=== PATIENT | male | born 1990 | race American Indian/Alaskan Native ===

== ENCOUNTER 2021-10-18 00:31 | Emergency (ER) | payer SELFPAY ==
[2021-10-18] MEDS ORDERED: ONDANSETRON 4 MG/2 ML INJ IV ONE (04:17)
[2021-10-18] MEDS ORDERED: MORPHINE 4 MG/1 ML INJ IV ONE (04:17)
[2021-10-18] MEDS ORDERED: dexAMETHasone 20 MG/5 ML VIAL IV ONE (04:17)
[2021-10-18] MEDS ORDERED: SODIUM CHLORIDE 0.9% 1000 ML 1,000 ML IV ONE (04:17)
[2021-10-18 04:35] LABS: Basophils % (Auto) 0.2 % (0.0-1.8); Eosinophils % (Auto) 0.2 % (0.0-4.3); Hematocrit 47.1 % (35.5-45.6); Hemoglobin 15.5 gm/dl (11.8-15.2); Lymphocytes # (Auto) 1.7 K/mm3 (1.2-5.4); Lymphocytes % (Auto) 10.5 % (13.4-35.0); Mean Corpuscular HGB Conc 33 % (32-34); Mean Corpuscular Volume 92 fl (84-94); Monocytes # (Auto) 1.7 K/mm3 (0.0-0.8); Platelet Count 250 K/mm3 (140-440); Red Blood Count 5.11 M/mm3 (3.65-5.03)
[2021-10-18 04:54] LABS: Alanine Aminotransferase 15 units/L (7-56); Albumin 3.6 g/dL (3.9-5); BUN/Creatinine Ratio 6; Blood Urea Nitrogen 5 mg/dL (9-20); Calcium 8.6 mg/dL (8.4-10.2); Hemolysis Index 19
--- NOTE | 2021-10-18 06:28 | Cat Scan Report ---
CT NECK 10/18/2021 HISTORY: Sore throat. Swelling.. FINDINGS: Contrast enhanced CT images of the soft tissues of the neck were obtained. Images are evalu ated in the axial, coronal, and sagittal planes. There is prominent soft tissue swelling in the left tonsillar region, resulting in mass effect upon t he upper airway. There is a central focal area of relatively decreased attenuation within the swollen tonsillar soft tissue, which measures approximately 1.6 cm, consistent with peritonsillar abscess. Soft tissue edema extends downward along the left lateral aspect of the posterior nasal and oral phar ynx, resulting in asymmetry of the vallecula and piriform sinuses, with edema extending down to the l evel of the true vocal cord. There is prominent edema and swelling of the uvula. The epiglottis is unremarkable. Pronounced cervical adenopathy is present, left greater than right, consistent with reactive adenopat hy. The largest of the cervical lymph nodes on the left measures approximately 3 cm in length. IMPRESSION: Left peritonsillar swelling and edema with evidence of 1.6 MET peritonsillar abscess. Pronounced cervical adenopathy, left greater than right. All CT scans at this location are performed using dose reduction to ALARA by means of automated expos ure control. Signer Name: Lee Alaniz MD Signed: 10/18/2021 6:24 AM Workstation Name: [id number]
--- NOTE | 2021-10-18 07:29 | Event Note ---
ED Screening Note ED Screening Note: reexam l pharyngeal swelling difficulty talking and swallowing Santino aware of need for bed ? dispo / drainage This initial assessment/diagnostic orders/clinical plan/treatment(s) is/are subject to change based on patients health status, clinical progression and re- assessment by fellow clinical providers in the ED. Further treatment and workup at subsequent clinical providers discretion. Patient/guardian urged not to elope from the ED as their condition may be serious if not clinically assessed and m anaged. Initial orders include: to main for MD eval/transfer/ dispo
--- NOTE | 2021-10-18 08:29 | Emergency Department Report ---
ED ENT HPI - General Chief complaint: Sore Throat Stated complaint: THROAT SWOLLEN SOB Time Seen by Provider: 10/18/21 06:41 Source: patient Mode of arrival: Ambulatory Limitations: No Limitations - History of Present Illness Initial comments: Patient is 31 years old male with no significant past medical history. Patient presented to the ER with a 3-day history of sore throat and difficulty swallowing. Patient stated that it is painful to swallow. He stated that he has some chills but no fever. Patient denied any nausea or vomiting. No difficulty breathing. MD complaint: sore throat, difficulty swallowing -: days(s) (3) Severity: moderate - Related Data Allergies Allergy/AdvReac Type Severity Reaction Status Date / Time No Known Allergies Allergy Verified 10/18/21 04:12 ED Dental HPI - General Chief complaint: Sore Throat Stated complaint: THROAT SWOLLEN SOB Time Seen by Provider: 10/18/21 06:41 Source: patient Mode of arrival: Ambulatory Limitations: No Limitations - Related Data Allergies Allergy/AdvReac Type Severity Reaction Status Date / Time No Known Allergies Allergy Verified 10/18/21 04:12 ED Review of Systems ROS: Stated complaint: THROAT SWOLLEN SOB Other details as noted in HPI Comment: All other systems reviewed and negative Constitutional: chills. denies: fever ENT: throat pain Cardiovascular: palpitations. denies: chest pain Gastrointestinal: denies: abdominal pain, nausea, vomiting Neurological: denies: headache, weakness, numbness, paresthesias, confusion ED Past Medical Hx - Past Medical History Previous Medical History?: No - Surgical History Past Surgical History?: No ED Physical Exam - General Limitations: No Limitations General appearance: alert, in no apparent distress - Head Head exam: Present: atraumatic, normocephalic, normal inspection - ENT ENT exam: Present: mucous membranes moist, other (Tonsillar erythema and swelling.) - Neck Neck exam: Present: normal inspection, full ROM. Absent: tenderness, meningismus - Respiratory Respiratory exam: Present: normal lung sounds bilaterally - Cardiovascular Cardiovascular Exam: Present: regular rate, normal rhythm, normal heart sounds - GI/Abdominal GI/Abdominal exam: Present: soft, normal bowel sounds. Absent: distended, tenderness, guarding, rebound, rigid, organomegaly, mass, bruit, pulsatile mass, hernia - Extremities Exam Extremities exam: Present: normal inspection, full ROM, normal capillary refill. Absent: tenderness - Back Exam Back exam: Present: normal inspection, full ROM. Absent: CVA tenderness (R), CVA tenderness (L) - Neurological Exam Neurological exam: Present: alert, oriented X3, CN II-XII intact, normal gait, reflexes normal. Absent: motor sensory deficit - Psychiatric Psychiatric exam: Present: normal mood - Skin Skin exam: Present: warm, intact, normal color ED Course Vital Signs 10/18/21 04:09 Temperature 98.5 F Pulse Rate 115 H Respiratory 17 Rate Blood Pressure 138/97 [Right] O2 Sat by Pulse 98 Oximetry ED Medical Decision Making - Lab Data Result diagrams: 10/18/21 04:21 10/18/21 04:21 - Radiology Data Radiology results: report reviewed - Medical Decision Making Patient is 31 years old male with no significant past medical history. Patient presented to the ER with a 3-day history of sore throat and difficulty swallowing. Patient stated that it is painful to swallow. He stated that he has some chills but no fever. Patient denied any nausea or vomiting. No difficulty breathing. Patient with leukocytosis of 16. Patient received clindamycin, Decadron, morphine and Zofran and normal saline. CT soft tissue neck with IV contrast showed 1.6 cm peritonsillar abscess and also showing mass-effect on the upper airway. Patient stated the symptom improved after the medication that given. I discussed the patient with Dr. Abiodun Chavez from [facility] he accepted the patient to be transferred to [facility] [place] ER for further management. On this call also present Dr. Hernandez from ER and she accepted the patient also. Critical Care Time: Yes Critical care time in (mins) excluding proc time.: 35 Critical care attestation.: If time is entered above; I have spent that time in minutes in the direct care of this critically ill patient, excluding procedure time. ED Disposition Clinical Impression: Peritonsillar abscess Disposition: 51 HOSPICE/MEDICAL FACILITY Is pt being admited?: No Condition: Stable Referrals: PRIMARY CARE, [Primary Care Provider] - 3-5 Days
[2021-10-18] MEDS ORDERED: MORPHINE 2 MG/1 ML INJ IV ONE (10:26)
[2021-10-18] MEDS ORDERED: MORPHINE 2 MG/1 ML INJ ONE (10:27)
[2021-10-18 11:41] VITALS: BP 134/89
== END 2021-10-18 12:51 | disposition hospice, inpatient (51) ==
LOC: ED 00:31
DX: J36 Peritonsillar abscess (principal)
CPT/HCPCS: 36415; 70491; 80053; 85025; 96365; 96366; 96375; 96376; 99285; J1100; J2270; J2405; J7030; J7502; Q9967; Q0162

== ENCOUNTER 2022-05-25 08:34 | Emergency (ER) | payer SELFPAY ==
--- NOTE | 2022-05-25 09:02 | XRay Report ---
CHEST 2 VIEWS INDICATION / CLINICAL INFORMATION: Chest Pain. COMPARISON: None available. FINDINGS: SUPPORT DEVICES: None. HEART / MEDIASTINUM: No significant abnormality. LUNGS / PLEURA: No significant pulmonary or pleural abnormality. No pneumothorax. ADDITIONAL FINDINGS: No significant additional findings. IMPRESSION: 1. No acute findings. Signer Name: Wyatt Lundberg MD Signed: 05/25/2022 8:57 AM Workstation Name: [id number]
[2022-05-25 09:33] LABS: Basophils % (Auto) 0.2 % (0.0-1.8); Eosinophils # (Auto) 0.1 K/mm3 (0.0-0.4); Eosinophils % (Auto) 1.2 % (0.0-4.3); Hematocrit 44.4 % (35.5-45.6); Hemoglobin 14.8 gm/dl (11.8-15.2); Lymphocytes # (Auto) 2.4 K/mm3 (1.2-5.4); Lymphocytes % (Auto) 30.4 % (13.4-35.0); Mean Corpuscular HGB Conc 33 % (32-34); Mean Corpuscular Volume 90 fl (84-94); Monocytes # (Auto) 0.6 K/mm3 (0.0-0.8); Platelet Count 245 K/mm3 (140-440); Red Blood Count 4.94 M/mm3 (3.65-5.03); Red Cell Distribution Width 14.1 % (13.2-15.2)
[2022-05-25 09:55] LABS: Alanine Aminotransferase 13 units/L (7-56); Albumin 4.7 g/dL (3.9-5); BUN/Creatinine Ratio 10; Blood Urea Nitrogen 8 mg/dL (9-20); Calcium 9.8 mg/dL (8.4-10.2); Hemolysis Index 14
--- NOTE | 2022-05-25 12:41 | Electrocardiograph Report ---
[facility] Test Date: 2022-05-25 Test Time: 08:41:31 Pat Name: QIAN BULLARD Department: Room: Gender: M Order Worker: AF : 1990 Requested By: ED DOC Order Number: [id number] Reading MD: Duy Dalal Measurements Intervals [place] Rate: 57 P: 73 DE: 141 QRS: 84 QRSD: 108 T: 78 QT: 463 QTc: 451 Interpretive Statements Sinus rhythm ST elev, probable normal early repol pattern No previous ECG available for comparison Electronically Signed On 05-25-2022 9:41:13 PDT by Duy Dalal
--- NOTE | 2022-05-25 16:42 | Emergency Department Report ---
ED General Adult HPI - General Chief complaint: Chest Pain Stated complaint: CHEST PAIN Time Seen by Provider: 05/25/22 16:15 Source: patient Mode of arrival: Ambulatory Limitations: No Limitations - History of Present Illness Initial comments: Patient presents to the emergency department the chief complaint of chest pain that has been continuous in nature for the last 2 days. Patient describes chest pain as achy dull-like sensation located on the left side of his chest. There is no radiation or shortness of breath. -: Sudden Location: chest Radiation: non-radiation Severity scale (0 -10): 5 Quality: aching Consistency: constant Improves with: none Worsens with: none Associated Symptoms: denies other symptoms Treatments Prior to Arrival: none - Related Data Allergies Allergy/AdvReac Type Severity Reaction Status Date / Time No Known Allergies Allergy Verified 05/25/22 08:40 ED Review of Systems ROS: Stated complaint: CHEST PAIN Other details as noted in HPI Comment: All other systems reviewed and negative Constitutional: denies: chills, fever Eyes: denies: eye pain, eye discharge, vision change ENT: denies: ear pain, throat pain Respiratory: denies: cough, shortness of breath, wheezing Cardiovascular: chest pain. denies: palpitations Endocrine: no symptoms reported Gastrointestinal: denies: abdominal pain, nausea, diarrhea Genitourinary: denies: urgency, dysuria Musculoskeletal: denies: back pain, joint swelling, arthralgia Skin: denies: rash, lesions Neurological: denies: headache, weakness, paresthesias Psychiatric: denies: anxiety, depression Hematological/Lymphatic: denies: easy bleeding, easy bruising ED Past Medical Hx - Past Medical History Previous Medical History?: No - Social History Smoking Status: Never Smoker ED Physical Exam - General Limitations: No Limitations General appearance: alert, in no apparent distress - Head Head exam: Present: atraumatic, normocephalic - Eye Eye exam: Present: normal appearance, PERRL, EOMI - ENT ENT exam: Present: mucous membranes moist - Neck Neck exam: Present: normal inspection - Respiratory Respiratory exam: Present: normal lung sounds bilaterally. Absent: respiratory distress - Cardiovascular Cardiovascular Exam: Present: regular rate, normal rhythm. Absent: systolic murmur, diastolic murmur, rubs, gallop - GI/Abdominal GI/Abdominal exam: Present: soft, normal bowel sounds. Absent: distended, tenderness - Rectal Rectal exam: Present: deferred - Extremities Exam Extremities exam: Present: normal inspection - Back Exam Back exam: Present: normal inspection - Neurological Exam Neurological exam: Present: alert, oriented X3, CN II-XII intact. Absent: motor sensory deficit - Psychiatric Psychiatric exam: Present: normal affect, normal mood - Skin Skin exam: Present: warm, dry, intact, normal color. Absent: rash ED Course Vital Signs 05/25/22 05/25/22 05/25/22 08:37 16:07 17:49 Temperature 98.5 F Pulse Rate 66 64 55 L Respiratory 18 18 18 Rate Blood Pressure 116/71 120/73 112/65 [Right] O2 Sat by Pulse 99 99 99 Oximetry 05/25/22 18:50 Temperature Pulse Rate 74 Respiratory 18 Rate Blood Pressure 114/65 [Right] O2 Sat by Pulse 99 Oximetry ED Medical Decision Making - Lab Data Result diagrams: 05/25/22 09:07 05/25/22 09:07 - EKG Data -: EKG Interpreted by Tn EKG shows normal: sinus rhythm Rate: normal - EKG Data Interpretation: other (Early repolarization) Critical care attestation.: If time is entered above; I have spent that time in minutes in the direct care of this critically ill patient, excluding procedure time. ED Disposition Clinical Impression: Nonspecific chest pain Disposition: 01 HOME / SELF CARE / HOMELESS Is pt being admited?: No Does the pt Need Aspirin: No Condition: Stable Instructions: Nonspecific Chest Pain, Adult Additional Instructions: return if worse Forms: Work/School Release Form(ED) Time of Disposition: 19:30
[2022-05-25 20:09] VITALS: BP 120/82
== END 2022-05-25 20:24 | disposition home or self-care (01) ==
LOC: ED 08:34
DX: R07.89 Other chest pain (principal); Z79.899 Other long term (current) drug therapy
CPT/HCPCS: 36415; 71046; 80053; 84484; 85025; 85379; 93005; 99284